=== PATIENT | female | born 1935 | race Caucasian/White ===

== ENCOUNTER 2022-06-07 11:04 | Emergency (ER) | payer MEDICARE ==
[~2022-06-07] VITALS: Ht 157.5 cm; Wt 72.6 kg
[2022-06-07] MEDS ORDERED: ACETAMINOPHEN ES 500 MG TABLET PO ONE (13:00)
[2022-06-07] MEDS ORDERED: ACETAMINOPHEN ES 500 MG TABLET ONE (13:20)
[2022-06-07 15:21] VITALS: BP 149/68
--- NOTE | 2022-06-07 15:21 | NUR ---
Patient discharged to home with son in stable condition. Written and verbal after care instructions given. Patient verbalizes understanding of instruction.
== END 2022-06-07 15:21 | disposition home or self-care (01) ==
LOC: ER 11:04
DX: S00.12XA Contusion of left eyelid and periocular area, initial encounter (principal); S00.11XA Contusion of right eyelid and periocular area, initial encounter; S90.112A Contusion of left great toe without damage to nail, initial encounter; S60.022A Contusion of left index finger without damage to nail, initial encounter; R51.9 Headache, unspecified; W01.0XXA Fall on same level from slipping, tripping and stumbling without subsequent striking against object, initial encounter; Y93.89 Activity, other specified; Y92.89 Other specified places as the place of occurrence of the external cause; Y99.8 Other external cause status
CPT/HCPCS: 70450-TC; 70486-TC; 72125-TC; 72131-TC; 73140-TC; 73564-TC; 73660-TC